=== PATIENT | male | born 1955 | race Caucasian/White ===

== ENCOUNTER 2017-12-25 06:57 | Day surgery (SDC) | payer OTHER ==
[~2017-12-25] VITALS: Ht 157.5 cm; Wt 81.2 kg
[~2017-12-25 06:57] MED LIST: K-TAB ER20 MEQ PO; LIPITOR10 MG PO; METOPROLOL SUCC50 MG PO; RANITIDINE HCL150 M1 PO; VICTOZA 2-0.6 MG/0.1 SUB-Q
--- NOTE | 2017-12-25 10:17 | NUR ---
12/25/17 [facility] Gerardo Barba ORIENTED TO TIME AND SITUATION ON ENTRY TO PACU. DENIES PAIN OR NAUSEA.
--- NOTE | 2017-12-25 13:55 | NUR ---
PT IN FOR FIRST SCOPE-ROUTINE. ELSY IN SUPPORT. PT SEEMED AT EASE, BUT FELT HE SHOULD BE ABLE TO MOW LAWN THIS AFTERNOON. STATED, "NO TOMORROW WILL BE JUST FINE". PT REQUESTED PRAYER, WILL FOLLOW NEEDED
--- NOTE | 2017-12-25 19:02 | OR ---
[facility] [address], [place] [address] Signed DATE OF OPERATION: 12/25/2017 SURGEON: Chris Benites MD PREOPERATIVE DIAGNOSIS: Heme-positive stool. No evidence of rectal bleeding. Family history unknown (adopted). POSTOPERATIVE DIAGNOSIS: Normal colon to cecum. PROCEDURE: Total colonoscopy to cecum. ANESTHESIA: Intravenous sedation, fentanyl 100 mcg, Versed 4 mg. INDICATION: This 62-year-old man is of heritage and adopted and is referred for colonoscopy on the basis of heme-positive stool as noted by his primary provider, Dr. Hong Jeffers. He has had no prior colonoscopy. He has had no diarrhea or constipation and no gross blood per rectum. He is admitted at this time to undergo colonoscopy. He understands the risks of bleeding, infection, and perforation. FINDINGS: The prep was excellent. Complete colonoscopy was undertaken to the cecum without problem. There was no evidence of blood throughout any part of the examination. No diverticula, colitis, polyps, or other abnormality. DESCRIPTION OF PROCEDURE: The patient was brought to the endoscopy suite and placed in lateral decubitus position and given intravenous sedation to the point of slurred speech and nystagmus. Digital rectal examination was normal. An Olympus video colonoscope was passed in the rectum and manipulated throughout the colon ultimately intubating the cecum itself. The ileocecal valve was normal. Scope was withdrawn from that point. Examination throughout showed no sign of abnormality specifically no polyps, diverticular formation, colitis, or cancer. Retroflexed view of the rectum was normal as well. The scope was removed and the patient was taken to recovery room in good condition. Electronically Signed By: CHRIS BENITES MD 12/25/17 1902 PATIENT NAME: JAYNE PARIS OPERATIVE REPORT DATE OF : 55 REPORT #: [id number] PHYSICIAN: CHRIS BENITES MD PCP: HONG JEFFERS DO REPORT IS CONFIDENTIAL AND NOT TO BE RELEASED WITHOUT AUTHORIZATION [facility] [address], [place] [address] Signed CONCLUDING DIAGNOSIS: Normal colon to cecum. PLAN: Recommend repeat colonoscopy in 10 years. If bleeding is noted or other issues, consideration might be made for upper endoscopy, however, he is symptom-free from an epigastric pain standpoint. MD KEV Christy/MODL /[id number] cc: Hong Jeffers DO Copies: HONG JEFFERS DO ~ Electronically Signed By: CHRIS BENITES MD 12/25/17 1902 PATIENT NAME: JAYNE PARIS OPERATIVE REPORT DATE OF : 55 REPORT #: [id number] PHYSICIAN: CHRIS BENITES MD PCP: HONG JEFFERS DO REPORT IS CONFIDENTIAL AND NOT TO BE RELEASED WITHOUT AUTHORIZATION
== END 2017-12-25 10:45 | disposition home or self-care (01) ==
LOC: DS 06:57 → OPS 06:57 → DS 08:30 → OPS 08:30
PROVIDERS: Surgery
PROC: 0DJD8ZZ Inspection of Lower Intestinal Tract, Via Natural or Artificial Opening Endoscopic (ICD-10-PCS; principal; 2017-12-25 08:30)
DX: R19.5 Other fecal abnormalities (principal); E11.9 Type 2 diabetes mellitus without complications; K21.9 Gastro-esophageal reflux disease without esophagitis; I10 Essential (primary) hypertension; R76.11 Nonspecific reaction to tuberculin skin test without active tuberculosis; Z88.5 Allergy status to narcotic agent
CPT/HCPCS: 99153; G0500; J2250; J3010; J7120